=== PATIENT | female | born 1955 | race Two or more races ===

== ENCOUNTER 2017-04-13 16:48 | Emergency (ER) | payer MEDICARE, OTHER ==
[2017-04-13] MEDS ORDERED: ACETAMINOPHEN 325 MG TABLET PO ONE (17:38)
--- NOTE | 2017-04-13 17:39 | ER Document Report ---
ED Medical Screen (RME) - General Chief Complaint: Elbow Injury Stated Complaint: ELBOW PAIN Time Seen by Provider: 04/13/17 17:09 Mode of Arrival: Ambulatory Information source: Patient TRAVEL OUTSIDE OF THE [place] IN LAST 30 DAYS: No - HPI Patient complains to provider of: Left elbow pain with redness and swelling Onset: Other - 3 days Notes: 04/13/17 17:38 Patient is a 61-year-old female with a history of hypertension who presents to the emergency room today complaining of painful swelling and redness to her left elbow this been worsening over the past 3 days, she is noted to have a temperature of 99.2 but no actual fever has been recorded, she reports pain with range of motion testing of the elbow, denies any injury, no history of similar symptoms previously - Related Data Allergies/Adverse Reactions: aspirin Allergy (Verified 04/13/17 17:07) Past Medical History - Social History Chew tobacco use (# tins/day): No Frequency of alcohol use: None Drug Abuse: None - Past Medical History Cardiac Medical History: Reports: Hx Hypertension Renal/ Medical History: Denies: Hx Peritoneal Dialysis Musculoskeltal Medical History: Reports Hx Arthritis Surgical Hx: Negative - Immunizations Hx Diphtheria, Pertussis, Tetanus Vaccination: Yes Physical Exam - Vital signs Vitals: Temp Pulse Resp BP Pulse Ox 99.2 F 97 20 146/73 H 96 04/13/17 17:07 04/13/17 17:07 04/13/17 17:07 04/13/17 17:07 04/13/17 17:07 Course - Vital Signs Vital signs: Temp Pulse Resp BP Pulse Ox 99.2 F 97 20 146/73 H 96 04/13/17 17:07 04/13/17 17:07 04/13/17 17:07 04/13/17 17:07 04/13/17 17:07
[2017-04-13 18:33] LABS: ABSOLUTE EOSINOPHILS # (AUTO) 0.1 10^3/uL (0.0-0.6); ABSOLUTE LYMPHOCYTES (AUTO) 2.3 10^3/uL (0.5-4.7); ABSOLUTE MONOCYTES (AUTO) 0.9 10^3/uL (0.1-1.4); ABSOLUTE NEUT (AUTO) 6.5 10^3/uL (1.7-8.2); BASOPHILS % (AUTO) 0.4 % (0-2); EOSINOPHILS % (AUTO) 1.5 % (0-6); HEMATOCRIT 37.4 % (36.0-47.0); HEMOGLOBIN 12.8 g/dL (12.0-15.5); LYMPHOCYTES % (AUTO) 23.2 % (13-45); MEAN CORPUSCULAR HEMOGLOBIN 31.7 pg (27.0-33.4); MEAN CORPUSCULAR HGB CONC 34.1 g/dL (32.0-36.0); MEAN CORPUSCULAR VOLUME 93 fl (80-97); MONOCYTES % (AUTO) 8.8 % (3-13); RED BLOOD COUNT 4.03 10^6/uL (3.72-5.28); RED CELL DISTRIBUTION WIDTH 13.4 % (11.5-14.0); SEGMENTED NEUTROPHILS % (AUTO) 66.1 % (42-78); WHITE BLOOD COUNT 9.8 10^3/uL (4.0-10.5)
--- NOTE | 2017-04-13 18:47 | RADIOLOGY REPORT (SQ) ---
EXAM DESCRIPTION: ELBOW LEFT OVER 2 VIEWS COMPLETED DATE/TIME: 04/13/2017 6:36 pm REASON FOR STUDY: pain, swelling COMPARISON: None. NUMBER OF VIEWS: Four views. TECHNIQUE: AP, lateral, and both oblique radiographic images acquired of the left elbow. LIMITATIONS: None. FINDINGS: MINERALIZATION: Normal. BONES: No acute fracture or dislocation. No worrisome bone lesions. JOINT: No effusion. SOFT TISSUES: No soft tissue swelling. No foreign body. OTHER: No other significant finding. IMPRESSION: NEGATIVE STUDY OF THE LEFT ELBOW. NO RADIOGRAPHIC EVIDENCE OF ACUTE INJURY. TECHNICAL DOCUMENTATION: JOB ID: [id number] [employer]- All Rights Reserved
[2017-04-13 18:57] LABS: ANION GAP 12 (5-19); BLOOD UREA NITROGEN 14 mg/dL (7-20); C-REACTIVE PROTEIN 21.7 mg/L (<10.0); CALCIUM 9.5 mg/dL (8.4-10.2); CARBON DIOXIDE 29 mmol/L (22-30); CHLORIDE 100 mmol/L (98-107); CREATININE RESULT 0.73 mg/dL (0.52-1.25); GLUCOSE 106 mg/dL (75-110); POTASSIUM 4.1 mmol/L (3.6-5.0)
[2017-04-13] MEDS ORDERED: SULFAMETHOXAZOLE/TRIMETHOPRIM 800-160 MG TABLET PO ONE (19:29)
[2017-04-13] MEDS ORDERED: CEPHALEXIN 500 MG CAPSULE PO ONE (19:29)
--- NOTE | 2017-04-13 19:29 | ER Document Report ---
ED Extremity Problem, Upper - General Chief Complaint: Elbow Injury Stated Complaint: ELBOW PAIN Time Seen by Provider: 04/13/17 17:09 Mode of Arrival: Ambulatory Information source: Patient TRAVEL OUTSIDE OF THE [place] IN LAST 30 DAYS: No - HPI Patient complains to provider of: Pain, Swelling, Elbow Onset: Other - 3 days Quality of pain: Achy Severity of pain: Moderate Pain Level: 2 Exacerbated by: Movement Similar symptoms previously: No Recently seen / treated by doctor: No Notes: Patient is a 61-year-old female with a history of hypertension who presents to the emergency room today complaining of painful swelling and redness to her left elbow this been worsening over the past 3 days, she is noted to have a temperature of 99.2 but no actual fever has been recorded, she reports pain with range of motion testing of the elbow, denies any injury, no history of similar symptoms previously - Related Data Allergies/Adverse Reactions: aspirin Allergy (Verified 04/13/17 17:07) Past Medical History - General Information source: Patient - Social History Smoking Status: Never Smoker Chew tobacco use (# tins/day): No Frequency of alcohol use: None Drug Abuse: None Family History: Reviewed & Not Pertinent - Past Medical History Cardiac Medical History: Reports: Hx Hypertension Renal/ Medical History: Denies: Hx Peritoneal Dialysis Musculoskeltal Medical History: Reports Hx Arthritis Surgical Hx: Negative - Immunizations Hx Diphtheria, Pertussis, Tetanus Vaccination: Yes Review of Systems - Review of Systems Constitutional: No symptoms reported EENT: No symptoms reported Cardiovascular: No symptoms reported Respiratory: No symptoms reported Gastrointestinal: No symptoms reported Genitourinary: No symptoms reported Female Genitourinary: No symptoms reported Musculoskeletal: No symptoms reported Skin: See HPI Hematologic/Lymphatic: No symptoms reported Neurological/Psychological: No symptoms reported Physical Exam - Vital signs Vitals: Temp Pulse Resp BP Pulse Ox 99.2 F 97 20 146/73 H 96 04/13/17 17:07 04/13/17 17:07 04/13/17 17:07 04/13/17 17:07 04/13/17 17:07 - Notes Notes: - General General appearance: Appears well, Alert In distress: None - HEENT Head: Normocephalic, Atraumatic Eyes: Normal Conjunctiva: Normal Extraocular movements intact: Yes Eyelashes: Normal Pupils: PERRL - Respiratory Respiratory status: No respiratory distress - Cardiovascular Rhythm: Regular - Abdominal Inspection: Normal - Back Back: Normal - Extremities General upper extremity: Left elbow with mild swelling and erythema on the medial portion in a soft tissue of the elbow, there does appear to be a mild bursitis as well, distal sensation and motor is intact, patient has full range of motion but does report some pain while flexing and extending the elbow General lower extremity: Normal inspection - Neurological Neuro grossly intact: Yes Orientation: AAOx4 [place] Coma Scale Eye Opening: Spontaneous [place] Coma Scale Verbal: Oriented [place] Coma Scale Motor: Obeys Commands [place] Coma Scale Total: 15 - Psychological Associated symptoms: Normal affect, Normal mood - Skin Skin Temperature: Warm Skin Moisture: Dry Skin Color: Normal Course - Re-evaluation Re-evalutation: 04/13/17 21:27 Lab and imaging findings were discussed with patient and daughter at bedside which are unremarkable, based on physical exam findings I believe patient likely has a cellulitis to the right elbow rather than a septic arthritis, therefore she was started on Keflex and Bactrim, advised to follow-up with a primary care provider in 2-3 days or return if symptoms worsen or fail to improve, patient and daughter acknowledge understanding and agreement with this plan - Vital Signs Vital signs: Temp Pulse Resp BP Pulse Ox 98.1 F 70 18 127/64 H 99 04/13/17 19:57 04/13/17 19:57 04/13/17 19:57 04/13/17 19:57 04/13/17 19:57 - Laboratory Result Diagrams: 04/13/17 17:49 04/13/17 17:49 Laboratory results interpreted by me: 04/13/17 17:49 C-Reactive Protein 21.7 H - Diagnostic Test Radiology reviewed: Image reviewed, Reports reviewed Discharge - Discharge Clinical Impression: Cellulitis of left arm Condition: Stable Disposition: HOME, SELF-CARE Instructions: Cellulitis ([facility]) Additional Instructions: Follow up with your primary care provider in one to 2 days. Return to the emergency room immediately if symptoms worsen or any additional concerns. Prescriptions: Cephalexin Monohydrate [Keflex 500 mg Capsule] 500 mg PO BID #20 capsule Sulfamethoxazole/Trimethoprim [Bactrim Ds Tablet] 1 each PO BID #20 tablet
[2017-04-13 20:16] VITALS: BP 127/64
== END 2017-04-13 20:05 | disposition home or self-care (01) ==
LOC: ER 16:48
DX: L03.114 Cellulitis of left upper limb (principal); M25.522 Pain in left elbow; I10 Essential (primary) hypertension; Z88.6 Allergy status to analgesic agent
CPT/HCPCS: 99284; 36415; 87040; 85025; 86140; 80048; 73080; A9270 ×3